=== PATIENT | female | born 1940 | race Caucasian/White ===

== ENCOUNTER → 2018-05-24 09:11 | Outpatient (CLI) | payer MEDICARE, OTHER, SELFPAY ==
--- NOTE | 2018-05-24 09:19 | STEWCON_ITS ---
Reason For Study: Dyspnea Stress Results Protocol: Dobutamine Stress Echo Maximum Predicted HR: 145 bpm Target HR: 123 bpm % Maximum Predicted HR: 89 % DurationHeart Rate Stage (mm:ss) (bpm) BP Comment Baseline 69 162/92Diluted Definity 4 ML Given; No Chest Pain DSE 10 MCG 3:00 69 171/82No Chest Pain DSE 20 MCG 3:00 113 177/88No Chest Pain DSE 30 MCG 2:15 129 193/82No Chest Pain Recovery 93 162/84No Chest Pain Stress Duration: 8:15 mm:ss Maximum Stress HR: 129 bpm METS: 1 Baseline Echocardiogram Findings The estimated ejection fraction is 65 %. Stress Echo Wall motion Data Resting WM Intermediate WM Stress WM Resting Wall Motion Wall Motion Stress No regional wall motion No regional wall motion abnormalities noted. abnormalities noted. EKG Data Normal intervals are noted. The patient was titrated from 10 mcg to a maximun of 30 mcg of dobutamine during the stress. The maximum heart rate attained was 130 beats per minute. This was 89% of maximum predicted heart rate. During dobutamine infusion, there were no ST or T wave changes noted to suggest ischemia. No clinical angina was noted. Interpretation Summary The study was technically difficult. Contrast injection was performed. The estimated ejection fraction is 65 %. The patient was titrated from 10 mcg to a maximun of 30 mcg of dobutamine during the stress. Normal, adequate dobutamine echocardiogram. Negative for ischemia by EKG and echocardiographic criteria. No anginal symptoms noted. Rare PVC noted. Hypertensive blood pressure response to dobutamine. Decreased sensitivity due to poor echo windows requiring Definity agent. Final LVEF is 75%. No complications. Ordering Physician: Vignesh Mcintosh Referring Physician: Vignesh Mcintosh Performed By: Jenniffer Rojas RDCS
== END ==
PROVIDERS: Family Provider Family Medicine; PCP Family Medicine; Referring Provider Internal Medicine Cardiovascular Disease; Visit Provider Internal Medicine Cardiovascular Disease
DX: R06.00 Dyspnea, unspecified (principal); I10 Essential (primary) hypertension; E78.5 Hyperlipidemia, unspecified; E66.9 Obesity, unspecified
CPT/HCPCS: 93017; 93350; J7040; Q9957; A4216; C8928

== ENCOUNTER → 2019-04-16 09:32 | Outpatient (CLI) | payer MEDICARE, OTHER, SELFPAY ==
[2019-04-13 09:47] VITALS: BMI 48.0
[2019-04-16 11:45] LABS: AST(SGOT) 18 U/L (15-37); Alanine Aminotransfer ALT/SGPT 28 U/L (13-56); Albumin, Serum 3.7 g/dL (3.2-5.0); Alkaline Phosphatase 100 U/L (45-117); Cholesterol 130 mg/dL (200); Globulin 3.5 g/dL (2.2-4.2); High Density Lipoprotein 52 mg/dL; Protein, Total 7.2 g/dL (6.4-8.2); Triglycerides 54 mg/dL; Very Low Density Lipoprotein 11 mg/dL (5-40)
== END ==
PROVIDERS: Family Provider Family Medicine; PCP Family Medicine; Referring Provider Internal Medicine Cardiovascular Disease; Visit Provider Internal Medicine Cardiovascular Disease
DX: E78.00 Pure hypercholesterolemia, unspecified (principal)
CPT/HCPCS: 36415; 80061; 80076

== ENCOUNTER → 2019-04-30 14:51 | Outpatient (CLI) | payer MEDICARE, OTHER, SELFPAY ==
[2019-04-13 09:47] VITALS: BMI 48.0
--- NOTE | 2019-04-30 14:52 | ECHOD_ITS ---
Reason For Study: PHTN Procedure This was a 2D Doppler, Color Flow transthoracic echocardiogram. The study was technically difficult. Exam performed in department. Left Ventricle Normal size and thickness. The estimated ejection fraction is 65 %. Stage 1 diastolic dysfunction. No regional wall motion abnormalities noted. Right Ventricle Normal size and thickness. A moderator band is seen in the right ventricle. Atria The left atrium is mildly enlarged. Normal right atrium. Normal atrial septum. Mitral Valve Mild diffuse mitral valve thickening. Mild mitral annular calcification extending into the posterior leaflet. Trivial mitral valve insufficiency. Tricuspid Valve Normal tricuspid valve. Mild (1+) tricuspid valve insufficiency. Right ventricular systolic pressure estimated to be 35 mmHg. Aortic Valve Trisinus/trileaflet aortic valve. Aortic sclerosis, no stenosis. Pulmonic Valve Normal pulmonic valve. Great Vessels Normal aortic root. Normal arch. Normal inferior vena cava. Inferior vena cava collapse with respiration. Pericardium/Pleural No pericardial effusion. MMode/2D Measurements & Calculations LVIDd: 4.3 cm IVSd: 1.1 cm Ao root diam: 2.9 cm LVIDs: 2.4 cm LVPWd: 1.1 cm RVDd: 3.3 cm FS: 43.2 % LAV(MOD-bp): 67.9 ml LA A4 area: 21.2 cm2 LA dimension(2D): 4.0 cm LAV(MOD-bp) Indexed: 34.4 ml/m2 LAV(MOD-sp2): 68.6 ml LAV(MOD-sp4): 67.9 ml RA A4 area: 15.9 cm2 Time Measurements MV dec time: 0.20 sec Doppler Measurements & Calculations MV E max jeffery: 87.8 cm/sec Lat Peak E' Jeffery: 5.5 cm/sec Med Peak E' Jeffery: 5.6 cm/sec MV A max jeffery: 118.6 cm/sec E/E' lat: 16.0 E/E' med: 15.6 MV E/A: 0.74 Ao V2 max: 122.8 cm/sec LV V1 max: 102.4 cm/sec PA V2 max: 107.1 cm/sec Ao max P.0 mmHg LV V1 max P.2 mmHg TR max jeffery: 272.2 cm/sec TR max P.6 mmHg Interpretation Summary The estimated ejection fraction is 65 %. Stage 1 diastolic dysfunction. The left atrium is mildly enlarged. Trivial mitral valve insufficiency. Mild (1+) tricuspid valve insufficiency. Right ventricular systolic pressure estimated to be 35 mmHg. Compared to echo report dated 07/23/2015, no appreciable changes noted. Ordering Physician: Vignesh Mcintosh Referring Physician: Tino Avila Performed By: Britany Jauregui, MARTINACS, RVT
== END ==
PROVIDERS: Family Provider Family Medicine; PCP Family Medicine; Referring Provider Internal Medicine Cardiovascular Disease; Visit Provider Internal Medicine Cardiovascular Disease
DX: I27.20 Pulmonary hypertension, unspecified (principal); I10 Essential (primary) hypertension; E66.9 Obesity, unspecified
CPT/HCPCS: 93306

== ENCOUNTER 2019-10-22 15:00 | Outpatient (RCR) | payer MEDICARE, OTHER, SELFPAY ==
[2019-04-13 09:47] VITALS: BMI 48.0
--- NOTE | 2019-08-22 10:28 | HP.PTEVAL ---
Patient's Visit Information KERRIE DEWEY is a 78 year old F referred to Physical Therapy by Luis F David MD with a diagnosis of OA RIGHT KNEE. Date of Evaluation: 08/22/19 Physical Therapist: Aurea Trivedi PT, Cert MDT - Visit Plan Frequency: 2-3x /Week Duration: 4-6 Weeks Plan: AQUATIC THERAPY FOR RIGHT KNEE PAIN RELIEF, ROM AND STRENGTHENING. PLEASE INCLUDE CORE STABILIZATION WITH A NEUTRAL SPINE. RIGHT TKR PENDING. PATIENT ALREADY HAS WOLF HIP AND LEFT KNEE REPLACEMENTS. - Subjective Findings: Work/Leisure: YES. Disability: NO. Present symptoms: RIGHT KNEE PAIN. NO NUMBNESS OR TINGLING BUT SOMETIMES SOME NEUROPATHY IN BOTH FEET/TOES. Present since: ABOUT 2 YEARS AGO. Pain Scale: WORST 5/10, LEAST 0/10. Currently: 08/27 - WALKING IN. Commenced as a result of: ARTHRITIS. Symptoms at onset: RIGHT KNEE. Worse: WALKING, STANDING, NIGHT, PRESSURE, TWISTING IT. Better: SITTING DOWN, LYING DOWN. Disturbed sleep: YES. Previous history: UNREMARKABLE. Previous treatment: CELL STEM INJECTION ABOUT A YEAR AGO - CHANGE THE PAIN FROM THE INSIDE OF THE KNEE TO THE OUTSIDE AND BACK. Gait: I LIMP ON MY RIGHT KNEE. EVER SINCE I HAD MY LEFT HIP REPLACED I'M PIGEON TOED. Accidents: NO. Unexplained weight loss: NO. Imaging: RIGHT KNEE X-RAYS SHOW SEVERE OA - TKR RECOMMENDED. DR. DAVID WANTS HER TO LOSE SOME WEIGHT AND GET SOME THERAPY FIRST. REPORTS SHE HAS AN MRI OF HER LOW BACK WHEN SHE COMPLAINED OF WOLF THIGH WEAKNESS ABOUT A 18 MONTHS AGO - SHOWED TWO BULGING DISCS AND ARTHRITIS. DR. FARLEY SAID SHE PROBABLY NEEDS SURGERY BUT PATIENT REFUSED. PMH: WOLF HIP RPLMS, LEFT TKR, HYPOTHYROIDISM, HTN. WOLF SHLD PAIN, WEAKNESS AND IMMOBILITY. FALL IN APRIL WHEN LLE GAVE OUT WALKING AT [facility]. - Objective Sitting/Standing Posture: POOR. Lordosis: REDUCED. Lateral shift: NO. Relevant shift: N/A. Active Correction of posture: NE. Other Observations: THIS PATIENT AMBULATES INIDEP'LY INTO PT WITH A SLOW ANTALGIC GAIT PATTERN LURCHING FROM SIDE TO SIDE AND LIMPING ON HER RLE. LLE INTERNAL ROTATION. NO AD. NO LOB. Motor deficit: LLE WFL. RIGHT HIP 3+/5, KNEE EXT 4-/5, KNEE FLEX 4/5, ANKLE 5/5. Sensory deficit: WOLF LE LIGHT TOUCH SENSATION INTACT AND SYMMETRICAL. FEET NT. ROM deficit: RIGHT KNEE ROM IN SUPINE WITH A HEEL SLIDE = FULL EXTENSTION TO 115 DEG FLEXION. Reflexes: NT. Lumbar mvmt loss: flex - NIL. ext - SARA. R SG - SARA. L SG - MOD. Core strength: POOR. Palpation: MILD RIGHT KNEE EDEMA. MILD LOW BACK AND WOLF HIP TENDERNESS. TREATMENT: NEUROMUSCULAR REEDUCATION - RETRAINING OF MVMT AND POSTURE FOR SITTING, LYING AND STANDING ACTIVITIES. - Goals Goal 1:: DECREASE C/O RIGHT KNEE PAIN Goal Time Frame: 4-6 Weeks Goal 2:: IMPROVE STANDING, WALKING AND SLEEP FUNCTION Goal Time Frame: 4-6 Weeks Goal 3:: INCREASE FUNCTIONAL ROM OF RIGHT KNEE Goal Time Frame: 4-6 Weeks Goal 4:: INCREASE FUNCTIONAL STRENGTH OF RIGHT LE Goal Time Frame: 4-6 Weeks Goal 5:: PATIENT WILL BE INDEP WITH A WATER EX PROGRAM FOR CONTINUED IMPROVEMENT ONCE FORMAL PHYSICAL THERAPY CONCLUDES. Goal Time Frame: 4-6 Weeks - Rehabilitation Potential Rehabilitation Potential: Fair - Anticipated Interventions Patient/Client Instruction: Educate patient on: Condition, Plan of Care, Risk Factors, Benefits of Fitness Program For the Purpose of:: To improve self management Therapeutic Exercise to Include: Strength training, Body mechanics, Postural training, Flexibilty training, Gait and locomotor training, In an aquatic setting, Dynamic Lumbar Stabilization For the Purpose of:: To decrease pain, To increase ROM, To improve muscle performance and motor function, To increase tolerance to activity/condition/position, To improve ability of physical actions for home/community/work/leisure, To improve gait and locomotor functions Thank you for the opportunity to evaluate your patient. For Medicare and Medicare HMO plans, please review the plan of care and approve it. It will need to be FAXED BACK to us at [phone] for Medicare purposes. For Medicare only, by signing this I certify the plan of care. Please let me know if there are questions or concerns regarding this plan of care. Physician Signature: Date:
--- NOTE | 2019-09-24 15:31 | HP.PTREVAL ---
Luis F David MD, It has been my pleasure to treat KERRIE DEWEY over the last 10 visits for OA RIGHT KNEE. Please see the progress note below for an update on the physical therapy plan of care! Subjective: PATIENT REPORTS HER KNEE HURTS THE SAME OR MORE. PATIENT REPORTS SHE CAN DO THE EX'S A LOT BETTER IN THE POOL THAN ON [place]. PATIENT REPORTS SHE CAN'T DO HER HEP DUE TO KNEE PAIN. Objective/Function: PATIENT WAS SEEN TODAY FOR RE-ASSESSMENT OF PROGRESS TOWARD THE SET PT GOALS AND THE NEED FOR FURTHER PHYSICAL THERAPY VS READINESS FOR DISCHARGE. PATIENT IS MAKING GOOD PROGRESS TOWARD ALL PT GOALS AND IS A GOOD CANDIDATE TO CONTINUE AQUATIC THERAPY. UPON EXAM TODAY: Motor deficit: LLE WFL. RIGHT HIP 4/5, KNEE EXT 4-/5, KNEE FLEX 5/5, ANKLE 5/5. Sensory deficit: WOLF LE LIGHT TOUCH SENSATION INTACT AND SYMMETRICAL. FEET NT. ROM deficit: RIGHT KNEE ROM IN SUPINE WITH A HEEL SLIDE = FULL EXTENSTION TO 119 DEG FLEXION. Reflexes: NT. Lumbar mvmt loss: flex - NIL. ext - MOD. R SG - SARA. L SG - MOD. Core strength: POOR. Palpation: MILD RIGHT KNEE EDEMA. MILD LOW BACK AND WOLF HIP TENDERNESS. Plan Plan: Would recommend continued AT at this time, d/t progress made, however, room for greater improvement. Goals Goal 1:: DECREASE C/O RIGHT KNEE PAIN Goal Time Frame: 4-6 Weeks Goal Progress: Not Progressing Goal 2:: IMPROVE STANDING, WALKING AND SLEEP FUNCTION Goal Time Frame: 4-6 Weeks Goal Progress: Progressing Goal 3:: INCREASE FUNCTIONAL ROM OF RIGHT KNEE Goal Time Frame: 4-6 Weeks Goal 4:: INCREASE FUNCTIONAL STRENGTH OF RIGHT LE Goal Time Frame: 4-6 Weeks Goal 5:: PATIENT WILL BE INDEP WITH A WATER EX PROGRAM FOR CONTINUED IMPROVEMENT ONCE FORMAL PHYSICAL THERAPY CONCLUDES. Goal Time Frame: 4-6 Weeks Anticipated Interventions Patient/Client Instruction: Educate patient on: Condition, Plan of Care, Risk Factors, Benefits of Fitness Program For the Purpose of:: To improve self management Therapeutic Exercise to Include: Strength training, Body mechanics, Postural training, Flexibilty training, Gait and locomotor training, In an aquatic setting, Dynamic Lumbar Stabilization For the Purpose of:: To decrease pain, To increase ROM, To improve muscle performance and motor function, To increase tolerance to activity/condition/position, To improve ability of physical actions for home/community/work/leisure, To improve gait and locomotor functions Please do not hesitate to contact me at [phone] by phone or if you have questions or concerns regarding this new plan of care! Sincerely, Aurea Trivedi, PT, Cert MDT
--- NOTE | 2019-10-22 15:45 | HP.PTDCSUM ---
It has been my pleasure to treat KERRIE DEWEY referred by Luis F David MD, with the diagnosis of OA RIGHT KNEE for a total of 20 visit(s). Discharge Date: Please see the following information for a summary of their discharge status. Subjective: PATIENT REPORTS SHE IS NOW STARTING TO GET BETTER. STATES SHE IS DEVELOPIING SOME MORE MUSCLES IN HER THIGHS AND STEPS ARE GETTING EASIER. GOOD DAYS AND BAD DAYS. ABLE TO DO A LOT OF CLEANING ON TUESDAY. R knee Pain Intensity (Out of 10): 1 % Improvement: 10 Objective/Function: PATIENT WAS SEEN TODAY FOR RE-ASSESSMENT OF PROGRESS TOWARD THE SET PT GOALS AND THE NEED FOR FURTHER PHYSICAL THERAPY VS READINESS FOR DISCHARGE. UPON EXAM TODAY: Motor deficit: LLE WFL. RIGHT HIP 5/5, KNEE EXT 4/5, KNEE FLEX 5/5, ANKLE 5/5. Sensory deficit: WOLF LE LIGHT TOUCH SENSATION INTACT AND SYMMETRICAL. FEET NT. ROM deficit: RIGHT KNEE ROM IN SUPINE WITH A HEEL SLIDE = FULL EXTENSTION TO 121 DEG FLEXION. Reflexes: NT. Lumbar mvmt loss: flex - NIL. ext - MOD. R SG - SARA. L SG - MOD. Core strength: POOR. Palpation: NOT TENDER IN HIPS OR BACK WITH PALPATION TODAY. Goal 1:: DECREASE C/O RIGHT KNEE PAIN Goal Progress: Progressing Goal 2:: IMPROVE STANDING, WALKING AND SLEEP FUNCTION Goal Progress: Progressing Goal 3:: INCREASE FUNCTIONAL ROM OF RIGHT KNEE Goal Progress: Progressing Goal 4:: INCREASE FUNCTIONAL STRENGTH OF RIGHT LE Goal Progress: Progressing Goal 5:: PATIENT WILL BE INDEP WITH A WATER EX PROGRAM FOR CONTINUED IMPROVEMENT ONCE FORMAL PHYSICAL THERAPY CONCLUDES. Goal Progress: Progressing Plan: D/C at patients request. Recommend continued AT at this time d/t progress made, however room for greater improvement and patient would like to continue too but she states her wants her to stop due to the virus. If there are questions or concerns regarding this patient's physical therapy, please feel free to call me at [phone]. Thank you for the referral of this patient. Sincerely, Aurea Trivedi, PT, Cert MDT
== END 2019-10-22 19:00 | disposition home or self-care (01) ==
LOC: PT 15:00
PROVIDERS: PCP Family Medicine; Referring Provider Specialist; Visit Provider Specialist
DX: M17.11 Unilateral primary osteoarthritis, right knee (principal); E66.8 Other obesity; Z68.42 Body mass index [BMI] 45.0-49.9, adult
CPT/HCPCS: 97112; 97113; 97162; 97164; 97530